=== PATIENT | female | born 1955 | race Caucasian/White ===

== ENCOUNTER → 2017-08-09 | Outpatient (CLI) | payer BC | LOC: MC.RAD 09:24 | DX: Z12.31 Encounter for screening mammogram for malignant neoplasm of breast (principal); Z98.890 Other specified postprocedural states ==

== ENCOUNTER → 2019-07-11 | Outpatient (CLI) | payer BC | LOC: COL.RAD 13:00 | DX: M19.042 Primary osteoarthritis, left hand (principal); M19.041 Primary osteoarthritis, right hand | CPT/HCPCS: J3301; Q9967 ==

== ENCOUNTER 2023-03-09 11:34 | Day surgery (SDC) | payer MEDICARE ==
[2023-03-09] VITALS (7 sets, daily range): BP systolic 105–136; BP diastolic 66–82; PULSE 66–75; TEMP 97.9
[~2023-03-09] VITALS: Ht 170.2 cm; Wt 118.3 kg
[2023-03-09] MEDS ORDERED: COUMADIN 5MG5 MG/TAB PO (12:10)
[2023-03-09] MEDS ORDERED: LIPITOR 10MG10 MG PO (12:10)
[2023-03-09] MEDS ORDERED: LEXAPRO 10MG10 MG PO (12:10)
[2023-03-09] MEDS ORDERED: NATURAL IRON65 MG PO (12:11)
[2023-03-09 12:12] LABS: BASO # 0.1 K/mm3 (0.0-0.2); BASO % 0.9 % (0.0-2.0); EOS # 0.1 K/mm3 (0.0-0.7); EOS % 2.4 % (0.0-4.0); GRAN # 3.5 K/mm3 (1.4-6.5); GRAN % 60.1 % (42.2-75.2); HEMATOCRIT 38.7 % (37.0-47.0); HEMOGLOBIN 11.5 g/dl (12.5-16.0); LYMPH # 1.6 K/mm3 (1.2-3.4); LYMPH % 28.4 % (20.0-51.0); MEAN CELL VOLUME 81 fl (80.0-100.0); MEAN CORPUSCULAR HEMOGLOBIN 24 pg (27-31); MEAN CORPUSCULAR HGB CONC 30 g/dl (33.0-37.0); MEAN PLATELET VOLUME 9.7 fl (7.4-10.4); MONO # 0.5 K/mm3 (0.1-0.6); PLATELET COUNT 362 K/mm3 (130-400); RED BLOOD COUNT 4.81 M/mm3 (4.10-5.30); REDCELL DISTRIBUTION WIDTH-CV 20.8 % (11.5-14.5)
[2023-03-09] MEDS ORDERED: COMPLETE MULTI1 TAB PO (12:13)
[2023-03-09] MEDS ORDERED: VITAMIN C500 MG PO (12:13)
[2023-03-09 12:27] LABS: CALCIUM 8.7 mg/dL (8.4-10.2); CREATININE, serum 0.62 mg/dL (0.57-1.11)
--- NOTE | 2023-03-09 15:48 | NUR ---
Pt assisted to restroom. She is steady on feet. She has eaten applesauce, no difficulty swallowing. She and are aware of delay in getting DC papers due to Dr Espinosa being involved in urgent procedure. Pt expresses understanding and denies needs at this time.
--- NOTE | 2023-03-09 17:11 | NUR ---
Post CHRISTINA and Mod Sedation packets reviewed with pt, she expresses understanding. She ambulates again to restroom, gait steady. She's tolerated PO without issue. OKSANA Ambriz will assume cares until DC packet is completed. Call light in reach.
--- NOTE | 2023-03-09 18:48 | NUR ---
pt assisted to main exit via wheelchair and was accompanied by . pt IV discontinued upon dicharge. pt given discharge instructions and verbalized understanding. pt free from acute concerns and complaints upon discharge.
== END 2023-03-09 18:30 | disposition home or self-care (01) ==
LOC: COL.CAR 11:34
PROVIDERS: Internal Medicine Cardiovascular Disease
DX: I35.0 Nonrheumatic aortic (valve) stenosis (principal); I27.20 Pulmonary hypertension, unspecified; E78.00 Pure hypercholesterolemia, unspecified; I82.4Y2 Acute embolism and thrombosis of unspecified deep veins of left proximal lower extremity; G47.33 Obstructive sleep apnea (adult) (pediatric); Z99.81 Dependence on supplemental oxygen; Z28.310 Unvaccinated for COVID-19
CPT/HCPCS: J2704